=== PATIENT | female | born 1955 | race Caucasian/White ===

== ENCOUNTER → 2018-12-30 | Outpatient (CLI) | payer BC ==
--- NOTE | 2018-12-30 15:39 | PCVCIMAG ---
APPROVED REPORT Study performed: 12/30/2018 14:00:10 EXAM: Comprehensive 2D, Doppler, and color-flow Echocardiogram Patient Location: Echo lab Room #: 2Status: routine BSA: 1.83 HR: 74 bpmBP: 110/88 mmHg Rhythm: NSR Other Information Study Quality: Adequate Indications Abnormal ECG Dyspnea Chest Pain 2D Dimensions IVSd: 8.35 (7-11mm)LVOT Diam: 19.71 (18-24mm) LVDd: 45.49 mm PWd: 5.19 (7-11mm)Ascending Ao: 29.47 (22-36mm) LVDs: 31.29 (25-40mm) Left Atrium: 30.03 (27-40mm) Aortic Root: 25.93 mm LV Single Plane 4CH: 51.16 % LV Single Plane 2CH: 71.03 % Biplane EF: 63.4 % Volumes Left Atrial Volume (Systole) Single Plane 4CH: 32.26 mLSingle Plane 2CH: 21.75 mL Biplane LA Volume: 28.00 mLLA ESV Index: 15.00 mL/m2 Aortic Valve AoV Peak Kranthi.: 1.06 m/s AO Peak Gr.: 4.46 mmHgLVOT Max P.25 mmHg LVOT Max V: 0.75 m/s JOSE ROBERTO Vmax: 2.17 cm2 Mitral Valve E/A Ratio: 0.8 MV Decel. Time: 247.69 ms MV E Max Kranthi.: 0.54 m/s MV A Kranthi.: 0.66 m/s IVRT: 124.57 ms TDI E/Lateral E': 6.00E/Medial E': 10.80 Medial E' Kranthi.: 0.05 m/s Lateral E' Kranthi.: 0.09 m/s Pulmonary Valve PV Peak Kranthi.: 0.71 m/sPV Peak Gr.: 1.99 mmHg Pulmonary Vein P Vein S: 0.86 m/sP Vein A: 0.57 m/s P Vein D: 0.39 m/sP Vein A Dur.: 100.3 msec P Vein S/D Ratio: 2.21 Tricuspid Valve TR Peak Kranthi.: 2.12 m/s TR Peak Gr.: 17.99 mmHg TV Vmax: 0.59 m/sPA Pressure: 25.00 mmHg Left Ventricle The left ventricle is normal size. There is normal LV segmental wall motion. There is normal left ventricular wall thickness. Left ventricular systolic function is normal. The left ventricular ejection fraction is within the normal range. LVEF is 60-65%. Mild diastolic dysfunction is present (impaired relaxation pattern). Right Ventricle The right ventricle is normal size. The right ventricular systolic function is normal. Atria The left atrium size is normal. The right atrium size is normal. Aortic Valve The aortic valve is normal in structure. No aortic regurgitation is present. There is no aortic valvular stenosis. Mitral Valve The mitral valve is normal in structure. Trace mitral regurgitation. No evidence of mitral valve stenosis. Tricuspid Valve The tricuspid valve is normal in structure. Mild tricuspid regurgitation. Pulmonic Valve The pulmonary valve is normal in structure. There is no pulmonic valvular regurgitation. Great Vessels The aortic root is normal in size. The ascending aorta is normal in size. Descending aorta is normal in caliber. IVC is normal in size and collapses >50% with inspiration. Pericardium There is no pericardial effusion. There is no pleural effusion. <Conclusion> The left ventricle is normal size. There is normal left ventricular wall thickness. Left ventricular systolic function is normal. Mild diastolic dysfunction is present (impaired relaxation pattern). The right ventricle is normal size. The left atrium size is normal. The right atrium size is normal. The aortic valve is normal in structure. Trace mitral regurgitation. Mild tricuspid regurgitation.
--- NOTE | 2018-12-30 15:44 | PCVCIMAG ---
APPROVED REPORT Study performed: 12/30/2018 14:47:13 Exam: Stress Echocardiogram Indication: Abn EKG, Dyspnea on exertion, Patient Location: Echo lab Stress Nurse: Sharon Donald RN Room #: 2 Status: routine Ht: 5 ft 3 in HR: 95 bpm BP: 110/88 mmHg Rhythm: NSR Medical History Medical History: FAMILY HX DVT,PE,DM Previous Cardiac Procedures: none Pretest Chest Pain Characteristics: No chest pain Exercise History: Indeterminate Procedure The patient underwent an Exercise Stress Test using the Misty Protocol. Blood pressure, heart rate, and EKG were monitored. An Echocardiogram was performed by system support technician in four stages in quad fashion. At peak stress, four selected images were obtained and placed side by side with resting images for comparison. Stress Test Details Stress Test: Exercise stress testing was performed using a Misty protocol. HR Resting HR: 95 bpmMax Heart Rate (APMHR): 158 bpm Max HR Achieved: 173 bpmTarget HR (85% APMHR): 134 bpm % of APMHR: 109 Recovery HR: 111 bpm HR response to stress: Normal HR response to stress BP Resting BP: 110/88 mmHg Max BP: 170/84 mmHg Recovery BP: 138/84 mmHg BP response to stress: Normal blood pressure response to stress. ECG Resting ECG: Sinus Rhythm Stress ECG: Sinus Rhythm ST Change: Non-ischemic Arrhythmia: Rare PVCs,PACs Recovery ECG: Sinus Rhythm Recovery ST Change: Non-ischemic Recovery Arrhythmia: rare PVC,PAC Clinical Reason for Termination: Maximal effort Stress Symptoms: dyspnea Exercise duration: 8 min 41 sec Highest Stage Achieved: Stage 3: 3.4 mph at 14% grade. Exercise capacity: 10.4 METs Overall Exercise Capacity for Age: Normal Scale: Active Angina Score: None No complications. Stress ECG Conclusion The patient exercised according to the MISTY protocol for8:41 mins; achieving a work level of 10.4 METS. The resting heart rate of 95 bpm luna to a maximum heart rate of 173 bpm. This value represent 109% of the maximal, age-predicted heart rate. The resting blood pressure of 110/88 mmHg, luna to a maximum blood pressure of 170/84 mmHg. The exercise test was stopped due to fatigue . Pre-Stress Echo The resting Echocardiogram showed normal left ventricular contractility with an estimated Ejection Fraction of about 55-60%. Normal wall motion in all segments on baseline images. Post-Stress Echo The stress Echocardiogram showed normal left ventricular contractility with an estimated Ejection Fraction of about 65-70%. Normal augmentation of wall motion in all segments on post stress images. Clinical No clinical or ECG evidence for ischemia. Conclusion Clinical Response: Non-ischemic Exercise Capacity: Average Stress ECG Response: Non-ischemic Stress Echo Images: Non-ischemic No clinical, EKG or echocardiographic evidence for ischemia. <Conclusion> No clinical, EKG or echocardiographic evidence for ischemia.
== END | disposition home or self-care (01) ==
LOC: PCVCIMAG 13:50
PROVIDERS: ATTEND Internal Medicine Cardiovascular Disease
DX: I07.1 Rheumatic tricuspid insufficiency (principal); I25.9 Chronic ischemic heart disease, unspecified; I30.0 Acute nonspecific idiopathic pericarditis; R94.31 Abnormal electrocardiogram [ECG] [EKG]; Z68.31 Body mass index [BMI] 31.0-31.9, adult
CPT/HCPCS: 93306; 93351